=== PATIENT | female | born 1935 | race Caucasian/White ===

== ENCOUNTER 2018-03-25 17:29 | Emergency (ER) | payer MEDICARE, OTHER ==
[~2018-03-25] VITALS: Ht 160 cm; Wt 49.4 kg
[~2018-03-25 17:29] MED LIST: AZITHROMYCIN250 MG PO
[2018-03-25] MEDS ORDERED: CLINDAMYCIN PHOS 900MG/ D5W 50 50 ML IV ONE (17:45)
[2018-03-25 18:29] LABS: BASOPHILS # (AUTO) 0.1 (0.0-0.1); BASOPHILS % 1.3 % (0.0-1.0); EOSINOPHILS # (AUTO) 0.4 (0.0-0.4); EOSINOPHILS % 5.7 % (0.0-6.0); HEMOGLOBIN 14.4 g/dL (12.0-16.0); LYMPHOCYTES # (AUTO) 0.9 (1.0-3.2); LYMPHOCYTES % 12.5 % (18.0-39.1); MEAN CORPUSCULAR HEMOGLOBIN 30.4 pg (28-32); MEAN CORPUSCULAR VOLUME 94.9 fL (81-99); MONOCYTES # (AUTO) 0.9 (0.2-0.8); MONOCYTES % 12.2 % (4.4-11.3); NEUTROPHILS # (AUTO) 4.7 (2.1-6.9); PLATELET COUNT 372 x10e3/uL (140-360); RED BLOOD COUNT 4.74 x10e6/uL (3.6-5.1); RED CELL DISTRIBUTION WIDTH 13.9 % (11.7-14.4)
[2018-03-25 18:51] LABS: ALBUMIN/GLOBULIN RATIO 1.2 (0.8-2.0); ANION GAP 15.6 mmol/L (8-16); CALCIUM 9.5 mg/dL (8.4-10.2); CREATININE, SERUM 2.19 mg/dL (0.57-1.11); POTASSIUM 3.6 mmol/L (3.5-5.1)
--- NOTE | 2018-03-25 20:26 | Diagnostic Imaging Report ---
EXAM: US UPP EXT VEIS [facility]TG[facility] UNI INDICATION: swelling right arm \[id number] \S\1900 \S\NA COMPARISON: None TECHNIQUE: Bass scale, color Doppler and spectral waveform analysis of the right upper extremity deep venous system was performed. FINDINGS: No thrombus in the visualized internal jugular, subclavian, axillary, brachial, radial, ulnar veins. No thrombus in the basilic vein. The cephalic vein is not visualized. Veins amenable to compression are compressible. IMPRESSION: No evidence of right upper extremity deep venous thrombosis. Signed by: Dr Zuri Allen MD on 03/25/2018 8:22 PM
[2018-03-31] MEDS ORDERED: MINOCYCLINE HCL50 MG PO (18:50)
[2018-03-31] MEDS ORDERED: SODIUM BICARBO650 MG PO (18:50)
[2018-03-31] MEDS ORDERED: FAMOTIDINE20 MG PO (18:50)
== END 2018-03-25 20:58 | disposition home or self-care (01) ==
LOC: FSED 17:29
DX: T80.89XA Other complications following infusion, transfusion and therapeutic injection, initial encounter (principal); L03.113 Cellulitis of right upper limb; M79.621 Pain in right upper arm; M25.521 Pain in right elbow; I10 Essential (primary) hypertension
CPT/HCPCS: 36415; 80053; 85025; 93971; 99283

== ENCOUNTER 2018-03-27 14:59 | Inpatient (IN) | payer OTHER ==
[~2018-03-27] VITALS: Ht 160 cm; Wt 63.2 kg
[2018-03-27] MEDS ORDERED: STOOL SOFTENER50 MG PO (15:24)
[2018-03-27] MEDS ORDERED: TYLENOL WITH C1 EACH PO (15:24)
[2018-03-27] MEDS ORDERED: SIMVASTATIN20 MG PO (15:24)
[2018-03-27] MEDS ORDERED: CLINDAMYCIN HC150 MG PO (15:24)
[2018-03-27] MEDS ORDERED: VENLAFAXINE HCL75 M1 PO (15:24)
[2018-03-27] MEDS ORDERED: ZOFRAN ODT4 MG PO (15:24)
[2018-03-27] MEDS ORDERED: GABAPENTIN100 MG PO (15:24)
[2018-03-27] MEDS ORDERED: CO Q-1010 MG PO (15:24)
[2018-03-27] MEDS ORDERED: HYDRALAZINE HCL25 MG PO (15:24)
[2018-03-27] MEDS ORDERED: CLONAZEPAM0.5 MG PO (15:24)
[2018-03-27] MEDS ORDERED: ONDANSETRON HCL 4 MG ORAL DISINTEGRATING TAB SL ONE (16:00)
[2018-03-27] MEDS ORDERED: PIPERACILLIN/TAZO 2.25 GM 50 ML IV ONE (17:45)
[2018-03-27] MEDS ORDERED: VANCOMYCIN 1GM/NS 250 ML 250 ML IV ONE (17:45)
[2018-03-27] MEDS ORDERED: CEFAZOLIN SOD 1 GM in WATER STERILE 10ML VIAL 10 ML IV SCH (18:00)
[2018-03-27] MEDS ORDERED: ACETAMINOPHEN 325 MG TAB PO PRN (18:00)
[2018-03-27] MEDS ORDERED: CEFAZOLIN SOD 1 GM VIAL IV SCH (18:00)
[2018-03-27] MEDS ORDERED: MORPHINE SULFATE 2 MG/ML SYR IV PRN (18:00)
[2018-03-27] MEDS ORDERED: ONDANSETRON HCL 4 MG ORAL DISINTEGRATING TAB PO PRN (18:00)
[2018-03-27] MEDS: SODIUM CHLORIDE 0.9% 1000ML 1,000 ML IV SCH (18:30)
[2018-03-27 20:40] VITALS: BP 185/79
[2018-03-27 21:00] VITALS: BP 185/79
[2018-03-27 21:30] VITALS: BP 185/79
[2018-03-27] MEDS: CEFAZOLIN SOD 1 GM VIAL IV SCH (23:45)
[2018-03-28] VITALS (7 sets, daily range): BP systolic 128–149; BP diastolic 60–70
[2018-03-28] MEDS: SODIUM CHLORIDE 0.9% 1000ML 1,000 ML IV SCH ×4 (04:41→20:29)
[2018-03-28] MEDS ORDERED: SODIUM CHLORIDE 0.9% 1000ML 1,000 ML ONE (04:41)
[2018-03-28 04:59] LABS: BASOPHILS # (AUTO) 0.1 (0.0-0.1); BASOPHILS % 1.2 % (0.0-1.0); EOSINOPHILS # (AUTO) 0.5 (0.0-0.4); EOSINOPHILS % 8.6 % (0.0-6.0); HEMATOCRIT 40.6 % (34.2-44.1); HEMOGLOBIN 12.7 g/dL (12.0-16.0); LYMPHOCYTES # (AUTO) 1.2 (1.0-3.2); LYMPHOCYTES % 19.9 % (18.0-39.1); MEAN CORPUSCULAR HEMOGLOBIN 30.4 pg (28-32); MEAN CORPUSCULAR HGB CONC 31.3 g/dL (31-35); MEAN CORPUSCULAR VOLUME 97.1 fL (81-99); MONOCYTES # (AUTO) 0.9 (0.2-0.8); MONOCYTES % 15.3 % (4.4-11.3); NEUTROPHILS # (AUTO) 3.2 (2.1-6.9); NEUTROPHILS % 54.7 % (38.7-80.0); PLATELET COUNT 283 x10e3/uL (140-360); RED BLOOD COUNT 4.18 x10e6/uL (3.6-5.1); RED CELL DISTRIBUTION WIDTH 14.1 % (11.7-14.4)
[2018-03-28 05:23] LABS: ALBUMIN 3.1 g/dL (3.5-5.0); ALBUMIN/GLOBULIN RATIO 1.1 (0.8-2.0); ANION GAP 12.1 mmol/L (8-16); CALCIUM 8.2 mg/dL (8.4-10.2); CREATININE, SERUM 2.31 mg/dL (0.57-1.11); POTASSIUM 3.1 mmol/L (3.5-5.1)
[2018-03-28] MEDS: CEFAZOLIN SOD 1 GM VIAL IV SCH ×3 (05:39→17:45)
[2018-03-28] MEDS ORDERED: ONDANSETRON HCL 4 MG ORAL DISINTEGRATING TAB PO PRN (08:15)
[2018-03-28] MEDS: VENLAFAXINE HCL 75 MG CAPCR PO SCH (09:00)
[2018-03-28] MEDS: CLONAZEPAM 0.5 MG TAB PO SCH ×2 (09:00→17:00)
[2018-03-28] MEDS ORDERED: HEPARIN SOD (PORCINE) 5,000 UNIT/ML VIAL SC SCH (09:00)
[2018-03-28] MEDS: HYDRALAZINE HCL 25 MG TAB PO SCH ×3 (09:00→20:29)
[2018-03-28] MEDS: DOCUSATE SODIUM 100 MG CAP PO SCH (09:00)
[2018-03-28] MEDS ORDERED: DOCUSATE SODIUM PO SCH (09:00)
[2018-03-28] MEDS: GABAPENTIN 100 MG CAP PO SCH ×2 (09:00→17:00)
[2018-03-28] MEDS: CLINDAMYCIN 300MG 50 ML IV SCH ×2 (14:00→22:00)
--- NOTE | 2018-03-28 15:19 | History and Physical ---
PRIMARY CARE PHYSICIAN: . CHIEF COMPLAINT: Right arm redness and pain. HISTORY OF PRESENT ILLNESS: This is an 83-year-old woman with a history of stroke in 1994 with residual dysarthria and dysphagia, had recent bronchitis, had IV line placed in the right arm, developed redness at that site and pain. This occurred on March 25, which was about 3 days ago. Patient went home, now developing worsening right arm swelling, redness, pain, and warmth; therefore, she came to the hospital for further evaluation and management. PAST MEDICAL HISTORY: Hypertension, stroke in 1994 with residual dysarthria and dysphagia, recent bronchitis, and hyperlipidemia. PAST SURGICAL HISTORY: Hysterectomy. ALLERGIES: PER ELECTRONIC MEDICAL RECORD. FAMILY HISTORY/SOCIAL HISTORY: Patient is . She has no children. Occasional alcohol. No cigarettes. MEDICATIONS: Per electronic medical record. REVIEW OF SYSTEMS: Denies any dizziness, chest pain, shortness of breath, nausea, vomiting, diarrhea, headache. back pain, or vision changes. PHYSICAL EXAMINATION VITAL SIGNS: Reviewed. HEENT: Anicteric. CARDIOVASCULAR: Normal S1, S2. LUNGS: Moderate breath sounds. ABDOMEN: Soft, nontender, nondistended. EXTREMITIES: The right arm, she has erythema, warmth, tenderness in the right arm near the antecubital fossa. Minimal edema. SKIN: Dry. PSYCHIATRIC: Normal affect. NEUROLOGICAL: Alert and oriented x3. She does have dysarthria, difficulty with speaking and problems with swallowing own saliva. LABORATORY DATA: Reviewed. ASSESSMENT: This is an 83-year-old woman with; 1. Right arm cellulitis. 2. Right arm thrombophlebitis. 3. Hypokalemia. 4. Acute kidney injury. 5. Neuropathy. 6. Hypertension. 7. Hyperlipidemia. 8. Constipation. PLAN 1. We will continue IV antibiotics. 2. Follow up cultures. 3. Continue bowel regimen. 1. Continue gabapentin. 2. Continue heparin for DVT prophylaxis. 3. Continue Pepcid for GI prophylaxis. 4. We will continue clindamycin and cefazolin. 5. Discharge planning. Job#: [id number] SHAUN
[2018-03-28] MEDS: FAMOTIDINE 20 MG TAB PO SCH (16:30)
[2018-03-28] MEDS: SIMVASTATIN 20 MG TAB PO SCH (20:29)
[2018-03-29] VITALS (8 sets, daily range): BP systolic 131–162; BP diastolic 63–86
[2018-03-29] MEDS: CEFAZOLIN SOD 1 GM VIAL IV SCH ×5 (00:05→23:45)
[2018-03-29] MEDS: SODIUM CHLORIDE 0.9% 1000ML 1,000 ML IV SCH ×3 (03:56→20:30)
[2018-03-29] MEDS: CLINDAMYCIN 300MG 50 ML IV SCH ×3 (05:26→21:24)
[2018-03-29] MEDS: FAMOTIDINE 20 MG TAB PO SCH ×2 (07:30→16:30)
[2018-03-29] MEDS: GABAPENTIN 100 MG CAP PO SCH ×2 (09:00→17:00)
[2018-03-29] MEDS: CLONAZEPAM 0.5 MG TAB PO SCH ×2 (09:00→17:00)
[2018-03-29] MEDS: DOCUSATE SODIUM 100 MG CAP PO SCH (09:00)
[2018-03-29] MEDS: VENLAFAXINE HCL 75 MG CAPCR PO SCH (09:00)
[2018-03-29] MEDS: HYDRALAZINE HCL 25 MG TAB PO SCH ×3 (09:00→21:20)
[2018-03-29] MEDS: SIMVASTATIN 20 MG TAB PO SCH (21:20)
[2018-03-30] VITALS (8 sets, daily range): BP systolic 60–168; BP diastolic 61–83
[2018-03-30] MEDS: ACETAMINOPHEN 325 MG TAB PO PRN (00:01)
[2018-03-30] MEDS: CEFAZOLIN SOD 1 GM VIAL IV SCH ×3 (05:32→17:00)
[2018-03-30] MEDS: CLINDAMYCIN 300MG 50 ML IV SCH ×3 (05:47→22:00)
[2018-03-30] MEDS: SODIUM CHLORIDE 0.9% 1000ML 1,000 ML IV SCH (06:00)
[2018-03-30] MEDS: GABAPENTIN 100 MG CAP PO SCH ×2 (08:30→17:00)
[2018-03-30] MEDS: VENLAFAXINE HCL 75 MG CAPCR PO SCH (08:30)
[2018-03-30] MEDS: FAMOTIDINE 20 MG TAB PO SCH ×2 (08:30→17:00)
[2018-03-30] MEDS: HYDRALAZINE HCL 25 MG TAB PO SCH ×3 (08:30→22:00)
[2018-03-30] MEDS: DOCUSATE SODIUM 100 MG CAP PO SCH (08:30)
[2018-03-30] MEDS: CLONAZEPAM 0.5 MG TAB PO SCH ×2 (08:30→17:00)
[2018-03-30 14:23] LABS: BASOPHILS # (AUTO) 0.1 (0.0-0.1); BASOPHILS % 0.9 % (0.0-1.0); EOSINOPHILS # (AUTO) 0.4 (0.0-0.4); EOSINOPHILS % 6.2 % (0.0-6.0); HEMATOCRIT 40.9 % (34.2-44.1); HEMOGLOBIN 12.9 g/dL (12.0-16.0); LYMPHOCYTES # (AUTO) 0.9 (1.0-3.2); MEAN CORPUSCULAR HEMOGLOBIN 30.3 pg (28-32); MEAN CORPUSCULAR HGB CONC 31.5 g/dL (31-35); MONOCYTES # (AUTO) 0.9 (0.2-0.8); MONOCYTES % 13.7 % (4.4-11.3); NEUTROPHILS # (AUTO) 4.4 (2.1-6.9); NEUTROPHILS % 65.9 % (38.7-80.0); PLATELET COUNT 347 x10e3/uL (140-360); RED BLOOD COUNT 4.26 x10e6/uL (3.6-5.1); RED CELL DISTRIBUTION WIDTH 14.1 % (11.7-14.4)
[2018-03-30 15:00] LABS: CALCIUM 8.5 mg/dL (8.4-10.2); CREATININE, SERUM 1.96 mg/dL (0.57-1.11)
[2018-03-30] MEDS ORDERED: POTASSIUM CHLORIDE 10 MEQ TABCR PO NR (16:00)
[2018-03-30] MEDS: SODIUM BICARBONATE 8.4% 100 ML in SODIUM CHLORIDE 0.45% 1,000 ML IV SCH (17:00)
[2018-03-30] MEDS: SODIUM BICARBONATE 650 MG TAB PO SCH (17:00)
[2018-03-30] MEDS: SIMVASTATIN 20 MG TAB PO SCH (22:00)
[2018-03-31] VITALS (7 sets, daily range): BP systolic 139–152; BP diastolic 63–83
[2018-03-31] MEDS: CEFAZOLIN SOD 1 GM VIAL IV SCH ×4 (00:25→16:59)
[2018-03-31] MEDS: ACETAMINOPHEN 325 MG TAB PO PRN (00:30)
[2018-03-31] MEDS: CLINDAMYCIN 300MG 50 ML IV SCH ×2 (06:14→15:23)
[2018-03-31] MEDS: FAMOTIDINE 20 MG TAB PO SCH ×2 (09:56→16:59)
[2018-03-31] MEDS: DOCUSATE SODIUM 100 MG CAP PO SCH (09:56)
[2018-03-31] MEDS: CLONAZEPAM 0.5 MG TAB PO SCH ×2 (09:56→16:59)
[2018-03-31] MEDS: GABAPENTIN 100 MG CAP PO SCH ×2 (09:56→16:59)
[2018-03-31] MEDS: SODIUM BICARBONATE 650 MG TAB PO SCH ×2 (09:56→16:59)
[2018-03-31] MEDS: VENLAFAXINE HCL 75 MG CAPCR PO SCH (09:56)
[2018-03-31] MEDS: HYDRALAZINE HCL 25 MG TAB PO SCH ×2 (09:56→16:59)
[2018-03-31] MEDS: SODIUM BICARBONATE 8.4% 100 ML in SODIUM CHLORIDE 0.45% 1,000 ML IV SCH (16:59)
[2018-03-31] MEDS ORDERED: MINOCYCLINE HCL50 MG PO (18:50)
[2018-03-31] MEDS ORDERED: SODIUM BICARBO650 MG PO (18:50)
[2018-03-31] MEDS ORDERED: FAMOTIDINE20 MG PO (18:50)
--- NOTE | 2018-03-31 18:57 | Consultation ---
DATE OF CONSULTATION: March 31, 2018 CHIEF COMPLAINT: Right arm swelling and tenderness. HISTORY OF PRESENT ILLNESS: The patient is an 83-year-old female who was recently hospitalized with the right arm IV access. Patient has noticed increased swelling and pain and warmth in the area. She denies fever or chills. PAST MEDICAL HISTORY: Positive for IV hypertension, history of stroke in 1994, residual dysarthria and dysphagia, and recent bronchitis. SURGICAL HISTORY: Positive for hysterectomy. SOCIAL HABITS: No smoking or alcohol abuse. ALLERGIES: SHE HAS NO DRUGS ALLERGIES. REVIEW OF SYSTEMS: No chest pain or shortness of breath at present time. PHYSICAL EXAMINATION VITAL SIGNS: Stable. She is afebrile. GENERAL: Patient is awake, alert, in mild discomfort. HEENT: Sclerae are nonicteric. NECK: Supple. LUNGS: Clear. HEART: Regular rate and rhythm. ABDOMEN: Soft and nontender. EXTREMITIES: Revealed right antecubital area to have edema with erythema with some palpating tenderness. No fluctuance. No evidence of vein thrombosis. DIAGNOSTIC DATA: White cell count 6. Creatinine is 1.9. Upper arms ultrasound showed no evidence of deep vein thrombosis. ASSESSMENT: Cellulitis of the right antecubital fossa from IV infiltration. PLAN: Continue IV antibiotics and warm compress. Will follow the patient. Job#: [id number] LYNETTE
--- NOTE | 2018-04-01 23:20 | Progress Note ---
DATE: March 30, 2018 TIME OF SERVICE: 7:45 a.m. Overnight, no events. REVIEW OF SYSTEMS: Denies any dizziness, chest pain. PHYSICAL EXAMINATION VITAL SIGNS: Reviewed. GENERAL: A tired-appearing woman resting in bed. HEENT: Anicteric. CARDIOVASCULAR: Normal S1, S2. Without murmurs. ABDOMEN: Soft, nontender. EXTREMITIES: Right arm with erythema and warmth and has some edema. SKIN: Dry. PSYCHIATRIC: Flat affect. NEUROLOGIC: Alert and appropriate. LABS: Reviewed. MEDICATIONS: Reviewed. ASSESSMENT AND PLAN: An 83-year-old woman. 1. Right arm cellulitis. 2. Right arm thrombophlebitis. 3. Hypokalemia. 4. Chronic kidney disease, stage 4. 5. Neuropathy. 6. Hypertension. 7. Hyperlipidemia. 8. Constipation. PLAN 1. Continue antibiotics. 2. Discharge planning. 3. Continue current care. 4. Check labs and negative. Job#: [id number] CQ
--- NOTE | 2018-04-01 23:25 | Progress Note ---
DATE: March 29, 2018 TIME: 7:45 a.m. OVERNIGHT: No events. REVIEW OF SYSTEMS: Denies any dizziness, chest pain, shortness of breath, fever, chills, sweats, nausea, vomiting, diarrhea. PHYSICAL EXAMINATION: VITAL SIGNS: Have been reviewed. GENERAL APPEARANCE: Tired-appearing woman resting in bed. HEENT: Anicteric. CARDIOVASCULAR: Normal S1 and S2. LUNGS: Moderate breath sounds. ABDOMEN: Soft, nontender, nondistended. EXTREMITIES: She has right arm with erythema and warmth and edema at the antecubital fossa. SKIN: Dry. PSYCHIATRIC: Flat affect. LABS: Reviewed. MEDICATIONS: Reviewed. ASSESSMENT: An 83-year-old woman. 1. Right arm cellulitis. 2. Right arm thrombophlebitis. 3. Hypokalemia. 4. Acute kidney injury. 5. Neuropathy. 6. Hypertension. 7. Hyperlipidemia. 8. Constipation. PLAN: 1. Continue antibiotics. 2. Elevate the arm. 3. Wrap arm with Willy bandage. 4. Monitor and follow closely. Job#: [id number]
--- NOTE | 2018-04-01 23:29 | Discharge Summary ---
PRINCIPAL DIAGNOSES: 1. Right arm cellulitis. 2. Right arm thrombophlebitis. 3. Hypokalemia. 4. Acute kidney injury in the setting of chronic kidney disease, stage 4. 5. Neuropathy. 6. Hypertension. 7. Hyperlipidemia. 8. Constipation. SECONDARY DIAGNOSIS: Hypertension. CHIEF COMPLAINT: Right arm redness and pain. HISTORY OF PRESENT ILLNESS: This is an 83-year-old woman with right arm redness and pain. Please refer to the H and P for further details. HOSPITAL COURSE: Patient was found to have right arm cellulitis and right arm thrombophlebitis. Treated with antibiotics, elevation of the arm, and Willy bandage. Patient had acute kidney injury in the setting of chronic kidney disease, stage 4, but has remained improved and remains stable. She had hypokalemia, which was replaced and hypertension, these were treated medically. Patient did well, subsequently transitioned home, recommended to wrap the arm daily and elevate above the level of the heart. FOLLOWUP: With primary care doctor in 1 week. AVELINO SMITH MD Job#: [id number]
== END 2018-03-31 20:40 | disposition home or self-care (01) | DRG 315 ==
LOC: FSED 14:59 → ERHOLD 18:01 → UNDOADMIN 18:01 → ERHOLD 20:22 → MED/SURG2 20:22
PROVIDERS: ADMIT Internal Medicine; ATTEND Internal Medicine
DX: T80.1XXA Vascular complications following infusion, transfusion and therapeutic injection, initial encounter (principal); L03.113 Cellulitis of right upper limb; N17.9 Acute kidney failure, unspecified; N18.4 Chronic kidney disease, stage 4 (severe); I80.9 Phlebitis and thrombophlebitis of unspecified site; E87.6 Hypokalemia; I12.9 Hypertensive chronic kidney disease with stage 1 through stage 4 chronic kidney disease, or unspecified chronic kidney disease; G62.9 Polyneuropathy, unspecified; E78.5 Hyperlipidemia, unspecified; K59.00 Constipation, unspecified; I80.8 Phlebitis and thrombophlebitis of other sites; I69.822 Dysarthria following other cerebrovascular disease; I69.891 Dysphagia following other cerebrovascular disease
CPT/HCPCS: 36415; 80048; 80053; 80202; 81003; 82948; 85025; 85610; 87040; 96361; 99284; J0690; J1644; J2270; J2543; J3370; J7030

== ENCOUNTER 2018-12-09 10:16 | Emergency (ER) | payer OTHER, MEDICARE, BC ==
[~2018-12-09] VITALS: Ht 160 cm; Wt 63.0 kg
[~2018-12-09 10:16] MED LIST changes: +CLINDAMYCIN HC150 MG PO; +CLONAZEPAM0.5 MG PO; +CO Q-1010 MG PO; +FAMOTIDINE20 MG PO; +GABAPENTIN100 MG PO; +HYDRALAZINE HCL25 MG PO; +MINOCYCLINE HCL50 MG PO; +SIMVASTATIN20 MG PO; +SODIUM BICARBO650 MG PO; +STOOL SOFTENER50 MG PO; +TYLENOL WITH C1 EACH PO; +VENLAFAXINE HCL75 M1 PO; +ZOFRAN ODT4 MG PO
--- OUTSIDE RECORDS SUMMARY | 2018-12-09 10:19 | XMS REPORT | Clinical Summary ---
Author Author [facility] Organization [facility] Address Unknown Phone Unavailable Care Team Providers Care Director Marketing Analytics Name Role Phone Yair Marcus DO PCP Allergies Not on File Medications Not on file Active Problems Not on file Encounters Care Team Description Date Type Specialty Yair Marcus DO Osteoarthrosis, localized, primary, knee, unspecified laterality (Primary Dx) 11/12/2018 Transcribe Physical Therapy Orders Yair Marcus DO Abnormal mammogram 10/05/2018 Hospital Radiology Encounter Yair Marcus DO Abnormal mammogram 10/05/2018 Hospital Radiology Encounter Yair Marcus DO Abnormal mammogram (Primary Dx) 05/17/2018 Transcribe Access Orders Yair Marcus DO Breast cancer screening 05/08/2018 Hospital Radiology Encounter Yair Marcus DO Breast cancer screening (Primary Dx) 05/01/2018 Transcribe Access Orders after 12/08/2017 Social History Date Tobacco Use Types Packs/Day Years Used Never Assessed Sex Assigned at Date Recorded Not on file Industry Job Start Date Occupation Not on file Not on file Not on file Travel End Travel History Travel Start No recent travel history available. Last Filed Vital Signs Not on file Plan of Treatment Care Team Description Date Type Specialty System, Provider Not In, Yair Lang DO [address] [place] [address] Delma Jurado PTA 12/11/2018 Office Visit Physical Therapy System, Provider Not In, Yair Lang DO [address] [place] [address] 12/14/2018 Office Visit Physical Therapy System, Provider Not In, Yair Lang, DO [address] [place] [address] [phone] Delma Jurado, [employer]ING [employer] 12/18/2018 Office Visit Physical Therapy System, Provider Not In, Yair Lang, DO [address] [place] [address] [phone] Neo Walden, PT 12/21/2018 Office Visit Physical Therapy System, Provider Not In, Yair Lang, DO [address] [place] [address] [phone] Delma Jurado, SPOUTING INSTALLER 12/25/2018 Office Visit Physical Therapy System, Provider Not In, Yair Lang, DO [address] [place] [address] [phone] Delma Jurado, TYLER 12/28/2018 Office Visit Physical Therapy Health Maintenance Due Date Last Done Comments SHINGLES VACCINES (#1) 1987 65+ PNEUMOCOCCAL VACCINE 2002 (1 of 2 - PCV13) PNEUMOCOCCAL 2002 POLYSACCHARIDE VACCINE AGE 65 AND OVER INFLUENZA VACCINE 02/14/2019 Procedures Comments Procedure Name Priority Date/Time Associated Diagnosis MAMMO DIAGNOSTIC W CAD Routine 10/05/2018 Abnormal mammogram RIGHT 9:30 AM CDT US BREAST COMPLETE RIGHT Routine 10/05/2018 Abnormal mammogram 8:59 AM CDT MAMMO BREAST SCREEN Routine 05/08/2018 Breast cancer screening TOMOSYNTHESIS BILATERAL 2:32 PM CDT after 12/08/2017 Results * Mammo Diagnostic w Cad Right (10/05/2018 9:30 AM CDT) Specimen Narrative Performed At PROCEDURE: [facility] MAMMO DIAGNOSTIC W CAD RIGHT, US BREAST COMPLETE RIGHT 10/05/2018 9:15 AM COMPARISON: Screening mammogram dated 04/2018. No prior ultrasound for comparison. TECHNIQUE: Unilateral digital diagnostic mammogram of the right breast was performed and interpreted using computer-assisted detection. Hand-held high resolution sonographic images of the right breast (including all 4 quadrants and the retroareolar region) were obtained with color Doppler imaging as needed. CLINICAL HISTORY: The patient has no current palpable breast complaints. 83-year-old asymptomatic female presenting for further evaluation of a right breast mass identified on screening. Retrospective review of the screening examination also demonstrates a right breast asymmetry. FINDINGS: MAMMOGRAM: The breast parenchyma is heterogeneously dense, which may obscure small masses.Additional full field CC views demonstrate decreased conspicuity of the subcentimeter asymmetry seen in the posterior central right breast 7 cm from the nipple. This finding largely effaces on spot magnification compression views in the CC projection consistent with overlapping fibroglandular tissue. There is no associated calcification or distortion. There are no additional mammographic findings of concern in the right breast. ULTRASOUND: There are no suspicious cystic or solid masses in the right breast. In the 10 o'clock position 8 cm from the nipple, there is a 1.0 x 0.8 x 0.3 cm intramammary/low axillary lymph node with preserved fatty hilum and normal cortical thickness which represents a likely sonographic correlate for the right breast mass identified on screening. There is no suspicious sonographic correlate for the previously described right breast asymmetry IMPRESSION: 1. Right breast mass identified on screening corresponds to a benign-appearing low axillary/intramammary lymph node. 2. Incidental right breast asymmetry without suspicious sonographic correlate may represent asymmetric fibroglandular tissue. In the absence of prior imaging for comparison, precautionary short interval follow-up right breast mammogram recommended in 6 months with ultrasound as needed to confirm stability. Findings and recommendations were discussed with the patient at the time of the examination. BI-RADS Category 3. Probably benign.Short interval follow-up right breast mammogram recommended in 6 months with ultrasound as needed. If prior outside mammograms become available for comparison, an addendum will be provided. This facility is accredited by [employer] for Mammography. A negative x-ray report should not delay biopsy if a dominant or clinically suspicious mass is present. Not all cancers are identified by x-ray. [id number] Organization Address City/State/Zipcode Phone Number [facility] [address] [place] [address] * US Breast Complete Right (10/05/2018 8:59 AM CDT) Specimen Narrative Performed At PROCEDURE: [facility] MAMMO DIAGNOSTIC W CAD RIGHT, US BREAST COMPLETE RIGHT 10/05/2018 9:15 AM COMPARISON: Screening mammogram dated 04/2018. No prior ultrasound for comparison. TECHNIQUE: Unilateral digital diagnostic mammogram of the right breast was performed and interpreted using computer-assisted detection. Hand-held high resolution sonographic images of the right breast (including all 4 quadrants and the retroareolar region) were obtained with color Doppler imaging as needed. CLINICAL HISTORY: The patient has no current palpable breast complaints. 83-year-old asymptomatic female presenting for further evaluation of a right breast mass identified on screening. Retrospective review of the screening examination also demonstrates a right breast asymmetry. FINDINGS: MAMMOGRAM: The breast parenchyma is heterogeneously dense, which may obscure small masses.Additional full field CC views demonstrate decreased conspicuity of the subcentimeter asymmetry seen in the posterior central right breast 7 cm from the nipple. This finding largely effaces on spot magnification compression views in the CC projection consistent with overlapping fibroglandular tissue. There is no associated calcification or distortion. There are no additional mammographic findings of concern in the right breast. ULTRASOUND: There are no suspicious cystic or solid masses in the right breast. In the 10 o'clock position 8 cm from the nipple, there is a 1.0 x 0.8 x 0.3 cm intramammary/low axillary lymph node with preserved fatty hilum and normal cortical thickness which represents a likely sonographic correlate for the right breast mass identified on screening. There is no suspicious sonographic correlate for the previously described right breast asymmetry IMPRESSION: 1. Right breast mass identified on screening corresponds to a benign-appearing low axillary/intramammary lymph node. 2. Incidental right breast asymmetry without suspicious sonographic correlate may represent asymmetric fibroglandular tissue. In the absence of prior imaging for comparison, precautionary short interval follow-up right breast mammogram recommended in 6 months with ultrasound as needed to confirm stability. Findings and recommendations were discussed with the patient at the time of the examination. BI-RADS Category 3. Probably benign.Short interval follow-up right breast mammogram recommended in 6 months with ultrasound as needed. If prior outside mammograms become available for comparison, an addendum will be provided. This facility is accredited by [employer] for Mammography. A negative x-ray report should not delay biopsy if a dominant or clinically suspicious mass is present. Not all cancers are identified by x-ray. [id number] Performing Organization Address [facility]/Zipcode Phone Number [facility] [address] [place] [address] * Mammo Breast Screen Tomosynthesis Bilateral (05/08/2018 2:32 PM CDT) Specimen Narrative Performed At PROCEDURE: MAMMO BREAST SCREEN TOMOSYNTHESIS BILATERAL [facility] Computer aided detection was utilized for the interpretation of the digital bilateral screening mammography with tomosynthesis. COMPARISON: None available. INDICATION: 83-year-old female presenting for routine screening. FINDINGS: The breast are hetergenously dense, which may obscure small masses. This examination is limited by the patient's body habitus. There are benign calcifications in the right breast. A 0.8 cm oval mass is identified in the right lateral breast at posterior depth seen on the MLO view only. No significant mass, asymmetry or architectural distortion is identified in the left breast. IMPRESSION:Indeterminate mass in the right lateral breast. RECOMMENDATION: Additional evaluation with a right breast ultrasound and diagnostic mammogram if indicated. BI-RADS 0: INCOMPLETE. NEED ADDITIONAL IMAGING This facility is accredited by [employer] for Mammography. A negative x-ray report should not delay biopsy if a dominant or clinically suspicious mass is present. Not all cancers are identified by x-ray. [id number] Performing Organization Address [facility] Phone Number [facility] [address] [place] [address] after 12/08/2017 Insurance Type Payer Benefit Subscriber ID Effective Phone Address Plan / Dates [facility] x[facility]xx 1993- Present Advance Directives Patient has advance care planning documents on file. For more information, alfonso gannon contact: Jose E Rios [address] [place] [address]
[2018-12-09] MEDS ORDERED: TETANUS/DIPHTHERIA TOX ADULT 0.5 ML SYR IM ONE (10:30)
[2018-12-09] MEDS ORDERED: TRAMADOL HCL 50 MG TAB PO ONE (11:00)
[2018-12-09] MEDS ORDERED: BACITRACIN ZINC 0.9GM TP ONE ×2 (11:09→11:30)
--- NOTE | 2018-12-09 11:13 | Diagnostic Imaging Report ---
EXAMINATION: Head and cervical spine CT without contrast. HISTORY: Status post fall, hit the top of the head, head and neck pain, evaluate for fracture COMPARISON: None. TECHNIQUE: Multidetector axial images were obtained without contrast from the foramen magnum to the vertex and through the cervical spine. The images were reconstructed using brain and bone algorithms. Thin section brain images were reformatted into coronal and sagittal planes. Dose modulation, iterative reconstruction, and/or weight based adjustment of the mA/kV was utilized to reduce the radiation dose to as low as reasonably achievable. HEAD CT FINDINGS: Skull/difficult/: No lytic or blastic lesions. No fractures. Parenchyma: Mildly confluent periventricular and moctezuma radiata white matter hypodensities, most likely nonspecific chronic microvascular ischemic changes. No mass, hemorrhage or CT evidence of acute vascular insult. Brain volume: Normal for age. Ventricles: No hydrocephalus or displacement. Arteries: No density suggestive of thrombus. Dural sinuses: No abnormal density. Extra-axial spaces: No abnormal density. Foramen magnum: No mass, Chiari malformation, or basilar invagination. Sella: No obvious mass. Paranasal/mastoid sinuses: Imaged portions unremarkable. CERVICAL SPINE CT FINDINGS: Alignment:Reversal of the cervical lordosis with kyphotic malalignment centered from C4 to C6. Minimal anterolisthesis at C3-C4 and C4-C5. Soft tissues: Approximately 2.3 cm hypoattenuating, well-circumscribed nodule in the right lobe of the thyroid gland is incidentally noted, comparison to prior studies if available is recommended. Vertebrae: Nonspecific diffuse heterogeneous bone marrow density with focal areas of increased density along the dorsal aspect of the vertebral bodies and anterior lucency, this may be related to osteopenia. Multiple additional subchondral degenerative cyst adjacent to the inferior endplate of C4 and C5. Degenerative changes: C1-C2: Degenerative changes without stenoses. C2-C3: Bilateral facet hypertrophy without stenoses C3-C4: Severe facet retrolisthesis mainly on the right. Moderate right foraminal stenoses. C4-C5: Disc osteophyte complex formation, bilateral uncovertebral and facet arthrosis. Mild canal and foraminal narrowing. C5-C6: Disc osteophyte complex formation, bilateral uncovertebral arthrosis. Mild canal narrowing. No foraminal narrowing. C6-C7: Disc osteophyte complex formation, bilateral uncovertebral and facet arthrosis. Minimal canal narrowing. C7-T1: Facet arthrosis mainly on the right without stenoses. IMPRESSION: Head CT: 1. No acute postraumatic intracranial hemorrhage. 2. Mild chronic microvascular ischemic changes. Cervical spine CT: 1. No acute fractures or dislocations. 2. Nonspecific heterogeneous bone marrow density as detailed above, comparison to prior studies available is advised. 3. Reversal of the cervical lordosis with kyphotic malalignment. 4. Chronic degenerative changes as described. Note: Acute post traumatic spinal cord, vascular or ligamentous injury cannot adequately be assessed with CT. Signed by: Dr. Lacie Christian M.D. on 12/09/2018 11:09 AM
--- NOTE | 2018-12-09 11:37 | NUR ---
BALL RACKER BACK TO ROOM UNWRAPPED ALL BANDAGING AND DERMABONDED WOUNDS.
--- NOTE | 2018-12-09 11:37 | NUR ---
PTS DAUGHTER STATED SHE WANTED LEFT HAND XRAY, NOW XRAY HERE AND PT DOESNT WANT XRAY AND DAUGHTER STATES XRAY NOT NEEDED. XRAY CANCELLED
== END 2018-12-09 13:36 | disposition home or self-care (01) ==
LOC: ER 10:16
DX: S51.812A Laceration without foreign body of left forearm, initial encounter (principal); S51.811A Laceration without foreign body of right forearm, initial encounter; W01.0XXA Fall on same level from slipping, tripping and stumbling without subsequent striking against object, initial encounter; Y93.89 Activity, other specified; Y92.019 Unspecified place in single-family (private) house as the place of occurrence of the external cause; S06.890A Other specified intracranial injury without loss of consciousness, initial encounter; E04.1 Nontoxic single thyroid nodule
CPT/HCPCS: 70450; 72125; 90471; 90714; 99284

== ENCOUNTER 2021-12-13 18:58 | Emergency (ER) | payer OTHER, MEDICARE, BC ==
[~2021-12-13] VITALS: Ht 160 cm; Wt 63.0 kg
[2021-12-13] MEDS ORDERED: ACETAMINOPHEN 325 MG TAB PO ONE (19:15)
[2021-12-13] MEDS ORDERED: SODIUM CHLORIDE 0.9% 1000ML 1,000 ML IV ONE ×2 (19:15→19:45)
[2021-12-13 19:32] LABS: BASOPHILS # (AUTO) 0.1 (0.0-0.1); BASOPHILS % 0.3 % (0.0-1.0); EOSINOPHILS % 0.2 % (0.0-6.0); HEMATOCRIT 39.2 % (34.2-44.1); HEMOGLOBIN 12.6 g/dL (12.0-16.0); LYMPHOCYTES # (AUTO) 0.4 (1.0-3.2); MEAN CORPUSCULAR HGB CONC 32.1 g/dL (31-35); MEAN CORPUSCULAR VOLUME 96.3 fL (81-99); MONOCYTES # (AUTO) 1.5 (0.2-0.8); MONOCYTES % 7.3 % (4.4-11.3); NEUTROPHILS # (AUTO) 17.7 (2.1-6.9); NEUTROPHILS % 89.4 % (38.7-80.0); PLATELET COUNT 274 x10e3/uL (140-360); RED BLOOD COUNT 4.07 x10e6/uL (3.6-5.1); RED CELL DISTRIBUTION WIDTH 13.7 % (11.7-14.4)
[2021-12-13 19:50] LABS: ALBUMIN 2.8 g/dL (3.5-5.0); ALBUMIN/GLOBULIN RATIO 0.7 (0.8-2.0); ANION GAP 17.9 mmol/L (8-16); CALCIUM 8.3 mg/dL (8.4-10.2); CREATININE, SERUM 4.96 mg/dL (0.57-1.11); POTASSIUM 3.9 mmol/L (3.5-5.1)
[2021-12-13 19:59] LABS: CREATINE KINASE MB 11.6 ng/mL (0-5.0)
[2021-12-13 20:00] LABS: CLARITY,URINE TURBID (CLEAR); COLOR,URINE YELLOW (YELLOW)
[2021-12-13 20:01] LABS: KETONES,URINE NEGATIVE (NEGATIVE); LEUKOCYTE ESTERASE ,URINE LARGE (NEGATIVE); NITRITE,URINE NEGATIVE (NEGATIVE); PROTEIN,URINE DIPSTICK >=300 (NEGATIVE); URINE UROBILINOGEN 0.2 mg/dL (0.2 - 1)
[2021-12-13 20:03] LABS: BACTERIA,URINE FEW /HPF; WBC,URINE (MAN) >50 /HPF (0-5)
[2021-12-13 20:04] LABS: EPITHELIAL CELLS,URINE RARE /LPF
[2021-12-13 20:54] LABS: BAND NEUTROPHILS % (MANUAL) 15 %; LYMPHOCYTES % (MANUAL) 1 % (19-48); MONOCYTES % (MANUAL) 5 % (3.4-9.0); NEUTROPHILS % (MANUAL) 79 % (40-74)
[2021-12-13 20:55] LABS: PLATELET ESTIMATE ADEQUATE; PLATELET MORPHOLOGY COMMENT FEW LARGE
[2021-12-13 20:56] LABS: RBC MORPHOLOGY COMMENT NORMAL
[2021-12-13] MEDS ORDERED: SODIUM CHLORIDE 0.9% 1000ML 1,000 ML IV SCH (21:30)
== END 2021-12-13 23:46 | disposition other institution (70) ==
LOC: ER 19:02
DX: R50.9 Fever, unspecified (principal); N17.9 Acute kidney failure, unspecified; N39.0 Urinary tract infection, site not specified; M62.82 Rhabdomyolysis; Z20.822 Contact with and (suspected) exposure to COVID-19
CPT/HCPCS: 36415; 70450; 71045; 72125; 72170; 80053; 81001; 82550; 82553; 83605; 84484; 85025; 87040; 87071; 87186; 87205; 93005; 99284; J0692; J7030; U0002